=== PATIENT | female | born 1950 | race Caucasian/White ===

== ENCOUNTER → 2019-09-07 | Outpatient (CLI) | payer BC ==
[~2019-09-07] VITALS: Ht 170.2 cm; Wt 53.5 kg
[~2019-09-07] MED LIST: ASA81BEC PO; CARVEDILOL ER40 MG PO; LIPITOR 20 MG T20 M1 PO; NORVASC5 MG PO; QUINU5 PD PO; VITAMIN C500 M1 PO; VITAMIN D35000 UNI2 PO
--- NOTE | ~2019-09-07 | HPC ---
[facility] [place] [address] [address] [address] PAIN MANAGEMENT CONSULTATION Name: BUD VANG Room #: [facility].#: [id number] Admission: 09/07/19 Attend Phys: Elliot Alejandra MD Discharge: Date of : 50 Report #: [id number] THIS REPORT FOR: cc: Jose Snell MD, Rene P. MD Morgan,Elliot Wick MD ~ CC: Jose Alejandra DATE OF SERVICE: 09/07/2019 CHIEF COMPLAINT: Severe pain, right hip. The patient is a barney 69-year-old here today with her . She was sent down from Dr. Snell's office for us to assess for pain, evaluate and treat. Over the course of the last 2 weeks, she has had excruciating pain in her hip. It is made worse with sitting. She gets some relief with lying down, particularly on her left side. Pain intensity varies between 8 and 10 and is one of the worst pain she has had. She described it as continuous and aching. She is very active, likes to exercise and her says she is constantly moving. This is unusual for her. It does not radiate from the hip and is well localized in the gluteus region. She has minimal tenderness of the sacroiliac joint. MEDICATIONS: Carvedilol, atorvastatin, quinapril, aspirin, vitamin C and D. ALLERGIES: None. PAST MEDICAL HISTORY: Unremarkable other than hysterectomy in 1984. She has some childhood asthma. She has had meniscal tears of both knees, but these seem to be stable. SOCIAL HISTORY: She is . Her is supportive and with her today. 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 She smoked less than a pack of cigarettes a day and has done so for 30 years. She was counseled. She denies use of daily alcohol, but drinks once or twice a week in a social setting. REVIEW OF SYSTEMS: Positive for dysrhythmia, but has not been troublesome and she is asymptomatic at this time. She wears glasses, otherwise negative. PHYSICAL EXAMINATION: GENERAL: Pleasant female, alert and oriented, no signs of depression or anxiety. [address] [address] PAIN MANAGEMENT CONSULTATION Name: BUD VANG Room #: [facility]#: [id number] Admission: 09/07/19 Attend Phys: Elliot Alejandra MD Discharge: Date of : 50 Report #: [id number] HEENT: Within normal limits. CHEST: Clear. CARDIAC: Rhythm is regular. VITAL SIGNS: Blood pressure is 108/52, heart rate 71. She moves independently from sitting to standing position, ambulates with only mild antalgic features. Straight leg raising is negative in the sitting and supine position other than some pain in the gluteus region. No tenderness over the sacroiliac joint. No pain with forward flexion and extension. Marked trigger point tenderness is located in the upper outer cheek of the right buttock overlying the gluteus medius and gluteus chance insertion site. IMPRESSION: Gluteus chance/gluteus medius trigger point with gluteal bursitis. RECOMMENDATION: Trigger point injection. Procedure was explained to the patient. PROCEDURE: Skin was prepped with ChloraPrep and a 25-gauge 2-inch needle was used to infiltrate a total of 5 mL of 0.25% bupivacaine mixed with 40 mg of triamcinolone. She tolerated the procedure well. There were no complications. She was observed for a short time with reduction in pain and discharged. We will see her back in the pain clinic as needed. By: [id number] Elliot Alejandra MD /nt
[2019-09-07 14:46] VITALS: BP 108/52
--- NOTE | 2019-09-07 15:01 | NUR ---
Pain Clinic Assessment: 1. History of Osteoarthritis: Not Applicable History of Rheumatoid Arthritis: Not Applicable 2. Height: 5 ft. 7 in. 170.2 cm. Weight: 118.0 lb. oz. 53.524 kg. Patient's BMI: 18.5 3. Vital Signs: BP: 108/52 Pulse: 71 Resp: 14 Temp: 02 Sat: 96 ECG Mon: 4. Pain Intensity: 8 5. Fall Risk: Dizziness: Y Needs help standing or walking: N Fallen in the last 3 months: N Fall risk comments: 6. Patient on Blood Thinner: None 7. History of Hypertension: Y 8. Opioid Therapy greater than 6 weeks: N Opiate Contract Signed: 9. Risk Assessment Tool Provided: low-1 10. Functional Assessment Tool: 11. Recreational Drug Use: Never Drug Type: Tobacco Use: Current Every Day Smoker Tobacco Type: Cigarettes Amount or Packs/day: 5 How Many Years: 30 Alcohol Use: Yes Frequency: Weekly Quant: 3
== END | disposition home or self-care (01) ==
LOC: PAIN 12:01
DX: M25.551 Pain in right hip (principal); M79.18 Myalgia, other site; M70.71 Other bursitis of hip, right hip; I10 Essential (primary) hypertension; I42.9 Cardiomyopathy, unspecified; F17.210 Nicotine dependence, cigarettes, uncomplicated; Z98.890 Other specified postprocedural states; Z79.899 Other long term (current) drug therapy; Z90.710 Acquired absence of both cervix and uterus

== ENCOUNTER → 2019-10-28 | Outpatient (CLI) | payer BC ==
[2019-10-28 08:50] LABS: CREATININE 0.8 mg/dL (0.6-1.0)
== END ==
LOC: CAT 08:08
PROVIDERS: Surgery
DX: K57.30 Diverticulosis of large intestine without perforation or abscess without bleeding (principal); N28.1 Cyst of kidney, acquired; N28.89 Other specified disorders of kidney and ureter; M47.9 Spondylosis, unspecified

== ENCOUNTER → 2020-02-03 | Outpatient (CLI) | payer BC | LOC: SJCVCIMAG 10:02 | PROVIDERS: ATTEND Internal Medicine | DX: I34.0 Nonrheumatic mitral (valve) insufficiency (principal); I44.7 Left bundle-branch block, unspecified; I42.0 Dilated cardiomyopathy; I51.7 Cardiomegaly ==

== ENCOUNTER → 2020-08-29 | Outpatient (CLI) | payer BC | LOC: LAB 14:17 | PROVIDERS: ATTEND Internal Medicine Cardiovascular Disease | DX: Z01.812 Encounter for preprocedural laboratory examination (principal); Z20.822 Contact with and (suspected) exposure to COVID-19 ==

== ENCOUNTER 2020-09-02 06:34 | Inpatient (IN) | payer BC ==
[~2020-09-02] VITALS: Ht 170.2 cm; Wt 54.4 kg
[2020-09-02 07:28] VITALS: BP 114/50
[2020-09-02 07:34] LABS: ABSOLUTE NEUTROPHILS 2.6 thou/uL (1.4-8.2); BASOPHILS 0.7 % (0.0-2.0); CALCIUM 9.4 mg/dL (8.5-10.1); CREATININE 0.9 mg/dL (0.6-1.0); EOSINOPHILS 2.4 % (0.0-3.0); HEMATOCRIT 40.7 % (37.0-47.0); HEMOGLOBIN 13.3 gm/dL (12.0-15.0); LYMPHOCYTES 24.8 % (24.0-44.0); MCH 29.9 pg (26.0-34.0); MCHC 32.7 g/dL (28.0-37.0); MCV 91.4 fL (80.0-100.0); MONOCYTES 14.1 % (1.0-8.0); PLATELET COUNT 112 thou/uL (150-400); POTASSIUM 4.1 mmol/L (3.5-5.1); RBC 4.46 mil/uL (4.20-5.00); RDW 14.5 % (10.5-14.5); WBC 4.4 thou/uL (4.0-11.0)
[2020-09-02 07:40] LABS: ALBUMIN 3.6 g/dL (3.4-5.0); TOTAL BILIRUBIN 0.3 mg/dL (0.2-1.0); TOTAL PROTEIN 7.4 g/dL (6.4-8.2)
[2020-09-02] MEDS ORDERED: CARVEDILOL ER20 MG PO (07:41)
[2020-09-02] MEDS ORDERED: K2-D3 10,000 U1 EACH PO (07:42)
[2020-09-02 07:52] LABS: APTT 22.7 Seconds (24.5-32.8); PROTIME 9.9 Seconds (9.3-11.4)
--- NOTE | 2020-09-02 12:51 | NUR ---
PT ARRIVED TO UNIT AT APPROX 1210 ACCOMPANIED BY SPOUSE. VSS. IMMOBILIZER IN PLACE. INCISION SITE DRY AND INTACT. POST OP VITALS. C/O PAIN MANAGED WITH PO PAIN MEDS. CONTINUING POC.
[2020-09-02 15:23] VITALS: BP 122/72
[2020-09-02 20:02] VITALS: BP 144/70
[2020-09-02 23:49] VITALS: BP 158/60
[2020-09-03 04:47] VITALS: BP 142/59
--- NOTE | 2020-09-03 04:59 | NUR ---
SLEPT MOST OF SHIFT. UP TO BSC NEEDED. LEFT ARM IMMOBILIZER REMAINS IN PLACE. LEFT CHEST PM SITE INTACT WITHOUT BLEEDING. WORKING ON GOALS AND PLAN OF CARE FOR NOC. PROGRESSING TOWARDS DISCHARGE GOALS TO HOME. CONTINUE TO ASSES CLOSELY. DENIES COMPLAINTS OF CHEST PAIN OR SHORTNESS OF AIR.
[2020-09-03 07:43] VITALS: BP 129/56
[2020-09-03 10:13] VITALS: BP 129/56
--- NOTE | 2020-09-03 10:58 | NUR ---
ASSESSMENT CHARTED. PT ALERT AND ORIENTED. VSS. PRN PAIN MED GIVEN WITH PARTIAL RELIEF. PACEMAKER INCISION C/DI. NO HEMATOMA NOTED. SEEN BY DR. HOLMAN. ORDERS GIVEN TO DISCHARGE PT TO HOME. DISCHARGE INSTRUCTIONS GIVEN TO PT. PT VERBERLISED UNDERSTANDING.
--- NOTE | 2020-09-05 08:38 | P ---
[facility] [place] [address] PROCEDURE REPORT Name: BUD VANG Room #: 214-P [facility]..#: [id number] Admission: 09/02/20 Attend Phys: Vasyl Grey MD Discharge: 09/03/20 Date of : 50 Report #: [id number] THIS REPORT FOR: cc: Jose Snell MD, Rene P. MD Couchonnal, Luis F. MD ~ DATE OF SERVICE: 09/02/2020 Bi-V ICD IMPLANTATION PREOPERATIVE DIAGNOSES: 1. Nonischemic cardiomyopathy. 2. Left bundle branch block. 3. [place] [employer] functional class 3 heart failure symptoms. POSTOPERATIVE DIAGNOSES: 1. Nonischemic cardiomyopathy. 2. Left bundle branch block. 3. [place] [employer] functional class 3 heart failure symptoms. HISTORY: The patient is a 70-year-old with history of nonischemic cardiomyopathy, left bundle-branch block and class 3 heart failure symptoms, here for Bi-V ICD implantation. ANESTHESIA: The patient underwent MAC anesthesia with no anesthesia related complications. DESCRIPTION OF PROCEDURE: The patient underwent informed consent. We discussed the details of the procedure including the risks, which include but not limited to bleeding, infection, vascular damage, cardiac perforation, pneumothorax. She understood these risks and is willing to proceed. The patient was brought to EP laboratory in a fasting and sedated state, prepped and draped in sterile fashion, received IV antibiotics and underwent a venogram showing patency of left axillary vein. Next, lidocaine was injected below the level of left clavicle. Incision was made, pocket was created over the prepectoral fascia and access was obtained to the left axillary vein x 3. Sheaths were positioned using the modified Seldinger technique. Next, a ventricular lead was positioned in the right ventricular apex and atrial lead was positioned in right atrial appendage with adequate pacing and sensing thresholds. These leads were sutured to the prepectoral fascia using Ethibond suture. Next, a [place] coronary sinus sheath was placed in the right atrium. I attempted to obtain access to the coronary sinus for approximately 30 minutes using this. It appeared that likely the patient had a very vertical takeoff to her CS as she had a very narrow heart. I switched to a RoomReveal guide sheath [facility] [address] [place] [address] PROCEDURE REPORT Name: BUD VANG Haja Room #: 214-P [facility].#: [id number] Admission: 09/02/20 Attend Phys: Vasyl Grey MD Discharge: 09/03/20 Date of : 50 Report #: [id number] that the curve was too large and then this was a 6250V-EH and then I attempted the 6250-MPX. With this last sheath, I was able to finally get into the CS and as expected, there was a very tight vertical turn and I was able to get my wire about a third [address] way into the coronary sinus and then I used a dilator to advance the sheath over this wire. Finally, I was in the CS and I performed a venogram and unfortunately she had very limited options. She had one anterolateral branch and initially I was able to get the wire into another branch, but this resulted in a left bundle branch block pacing configuration. Eventually, I was able to get the wire into the anterolateral branch. Fortunately, the thresholds were quite high. I tried repositioning the lead and advancing and lost the lead position and then was able to get back to their original position after another 15-20 minutes. So, a lot of effort was taken just to get back to this vessel. Thresholds were checked and were high, but within an acceptable range. Therefore, the sheath was split, the lead remained in position and this lead was sutured to the prepectoral fascia. The leads were connected to the device, placed in the pocket. Pocket was irrigated with vancomycin. Pocket was closed in 2 layers and surgical glue was placed to outer skin layer. The patient awoke neurologically and hemodynamically intact. No complications and no significant bleeding. The implanted device was a RoomReveal, model #BCMR9RU, serial #[id number]. The leads were all Medtronic leads. Atrial lead was a 5076, 45 cm, serial #[id number]. RV lead was a 6935, 55 cm, serial #[id number]. LV lead was a 4298, serial [id number]. Atrial lead demonstrated P waves of 2.9 millivolts, pacing impedance 418 ohms, pacing threshold 0.75 volts at 0.4 milliseconds. RV lead demonstrated R waves of 11.8 millivolts, pacing impedance 456 ohms, pacing threshold 0.75 volts at 0.4 milliseconds and the LV lead demonstrated pacing impedance of 703 ohms and a threshold of 4.5 volts at 1.5 milliseconds in the LV to RV coil pacing configuration. The device was programmed DDDR 60-130 mode and the VT zone was set at 180-220 beats per minute with 3 rounds of burst followed by 3 rounds of ramp followed by max output shocks. VF zone was set at greater than 220 beats per minute with ATP while charging followed by max output shocks. CONCLUSIONS: 1. Successful BiV ICD implantation. 2. Satisfactory atrial and ventricular pacing and sensing thresholds. <ELECTRONICALLY SIGNED> By: Vasyl Grey MD 09/05/20 [id number] Vasyl Grey MD /nt
== END 2020-09-03 11:01 | disposition home or self-care (01) | DRG 227 ==
LOC: CATH 06:34 → 2N 12:15 → CATH 14:38 → 2N 09-03 11:01
PROVIDERS: ADMIT Internal Medicine Cardiovascular Disease; ATTEND Internal Medicine Cardiovascular Disease
PROC: 02HK3KZ Insertion of Defibrillator Lead into Right Ventricle, Percutaneous Approach (ICD-10-PCS; principal; 2020-09-02)
PROC: 0JH608Z Insertion of Defibrillator Generator into Chest Subcutaneous Tissue and Fascia, Open Approach (ICD-10-PCS; principal; 2020-09-02)
PROC: 02H63KZ Insertion of Defibrillator Lead into Right Atrium, Percutaneous Approach (ICD-10-PCS; principal; 2020-09-02)
DX: I42.8 Other cardiomyopathies (principal); I44.7 Left bundle-branch block, unspecified; I50.9 Heart failure, unspecified; I11.0 Hypertensive heart disease with heart failure; E78.5 Hyperlipidemia, unspecified; I73.00 Raynaud's syndrome without gangrene; D69.6 Thrombocytopenia, unspecified

== ENCOUNTER → 2020-12-01 | Outpatient (CLI) | payer BC ==
[~2020-12-01] MED LIST changes: +CARVEDILOL ER20 MG PO; +K2-D3 10,000 U1 EACH PO
== END ==
LOC: SJCVCIMAG 11:04
PROVIDERS: ATTEND Internal Medicine
DX: I34.0 Nonrheumatic mitral (valve) insufficiency (principal); I42.0 Dilated cardiomyopathy